=== PATIENT | male | born 1980 | race Caucasian/White ===

== ENCOUNTER 2023-12-26 16:15 | Outpatient (CLI) | payer BC, OTHER ==
[2023-12-26 20:42] LABS: BASOPHILS # (AUTO) 0.1 10^3/uL (0.0-0.1); BASOPHILS % (AUTO) 0.9 %; EOSINOPHILS # (AUTO) 0.6 10^3/uL (0.0-0.7); EOSINOPHILS % (AUTO) 7.5 %; HCT - HEMATOCRIT 45.7 % (42.0-52.0); HGB - HEMOGLOBIN 15.2 g/dL (14.0-18.0); LYMPHOCYTES # (AUTO) 2.2 10^3/uL (1.5-3.5); LYMPHOCYTES % (AUTO) 25.6 %; MEAN CORPUSCULAR HGB CONC 33.3 g/dL (32.0-36.0); MEAN CORPUSCULAR VOLUME 93.1 fL (80.0-94.0); MEAN PLATELET VOLUME 11.8 fL (7.4-11.4); MONOCYTES # (AUTO) 0.8 10^3/uL (0.0-1.0); MONOCYTES % (AUTO) 9.3 %; NEUTROPHILS # (AUTO) 4.8 10^3/uL (1.5-6.6); NEUTROPHILS % (AUTO) 56.3 %; PLT - PLATELET COUNT 255 10^3/uL (130-450); RED BLOOD COUNT 4.91 10^6/uL (4.70-6.10); RED CELL DISTRIBUTION WIDTH 12.6 % (12.0-15.0); WHITE BLOOD COUNT 8.6 x10^3/uL (4.8-10.8)
[2023-12-26 20:46] LABS: BILIRUBIN,URINE NEGATIVE (NEGATIVE); GLUCOSE, URINE (UA) NEGATIVE (NEGATIVE); KETONES,URINE (UA) NEGATIVE (NEGATIVE); LEUKOCYTE ESTERASE, URINE NEGATIVE (NEGATIVE); NITRITE,URINE NEGATIVE (NEGATIVE); OCCULT BLOOD,URINE LARGE (NEGATIVE); PH,URINE 6.5 PH (5.0-7.5); PROTEIN,URINE 100 mg/dL (NEGATIVE); UROBILINOGEN,URINE 1 (NORMAL) E.U./dL (NORMAL)
[2023-12-26 20:53] LABS: ALBUMIN 4.1 g/dL (3.2-5.5); ALBUMIN/GLOBULIN RATIO 1.5 (1.0-2.2); BILIRUBIN,TOTAL 0.4 mg/dL (0.2-1.0); CALCIUM 8.9 mg/dL (8.5-10.3); POTASSIUM 4.2 mmol/L (3.5-4.5); TOTAL PROTEIN 6.9 g/dL (6.4-8.9)
[2023-12-26 20:59] LABS: CLARITY,URINE CLEAR (CLEAR)
[2023-12-26 21:00] LABS: BACTERIA,URINE Rare /HPF (None Seen); RBC,URINE TNTC /HPF (0-5); SQUAMOUS EPITHELIAL CELL,UR NONE SEEN (<= Few); WBC,URINE 0-3 /HPF (0-3)
[2023-12-26 21:35] LABS: THYROID STIMULATING HORMONE 8.05 uIU/mL (0.34-5.60)
== END 2023-12-26 16:30 | disposition home or self-care (01) ==
LOC: LAB.N 16:15
PROVIDERS: ATTEND Physician Assistant Medical
DX: I10 Essential (primary) hypertension (principal)
CPT/HCPCS: 36415; 80053; 81001; 83690; 84443; 85025; 87086

== ENCOUNTER 2024-01-12 10:43 | Outpatient (CLI) | payer BC ==
[2024-01-12] MEDS ORDERED: iohexoL-300 100 ML VIAL ONE ×2 (10:57)
[2024-01-12] MEDS: iohexoL-300 100 ML VIAL IVP ONE (11:35)
--- NOTE | 2024-01-12 15:14 | CT Report ---
PROCEDURE: Abdomen/Pelvis W/WO INDICATIONS: HYPERTENSION CONTRAST: Omni 300 140ml TECHNIQUE: Noncontrast 5 mm thick sections acquired from the diaphragms to the symphysis. 5 mm coronal and sagi ttal reformats were then performed. After the administration of intravenous contrast, 5 mm thick sec tions acquired from the diaphragms to the symphysis. 5 mm thick coronal and sagittal reformats were acquired. For radiation dose reduction, the following was used: automated exposure control, adjustm ent of mA and/or kV according to patient size. COMPARISON: None. FINDINGS: Image quality: Excellent. Urinary system: Left kidney is normal in size. No left-sided hydronephrosis or nephrolithiasis on pre -contrast images. Left ureter is normal in course and caliber. There is an ill-defined, large partia lly exophytic mass in the lower right kidney measuring approximately 10.3 x 9.5 cm in axial cross sec tional dimension and approximately 10 cm in craniocaudal dimension. There is central low attenuation suggestive of central necrosis. There is mass effect upon the upper renal collecting system of the ri ght kidney without evidence for hydronephrosis. Right ureter is normal in course and caliber. The opa cified renal calyces and ureters appear normal, without filling defect. Bladder wall thickness is no rmal, accounting for underdistention. No calcified bladder stones. No filling defect within the opaci fied bladder. OTHER Lung bases and heart: 5 mm posterior right lower lobe nodule. Lung bases are otherwise clear. There i s mild hernia. Heart size is normal. Small hiatal hernia. Liver: No solid mass. Gallbladder and biliary tree: No radiopaque stones or wall thickening. No biliary dilation. Spleen: No splenomegaly. Pancreas: No pancreatic ductal dilation. Adrenals: No adrenal nodule. Bowel and peritoneum: No bowel distension. No pathologic free fluid. Normal appendix. Abdominal Lymph nodes: No central or retroperitoneal adenopathy. Vessels: Unremarkable. Reproductive organs: Unremarkable. Pelvic Lymph nodes: Unremarkable. Bones: No aggressive osseous abnormality. Other: Small fat-containing umbilical hernia without acute inflammation. IMPRESSION: 1. Large, ill-defined partially exophytic mass in the lower right kidney measuring 10.3 x 9.5 x 10.0 cm in size. There is suggestion of central necrosis. No suspicious intraluminal filling defects withi n the uterus or urinary bladder. Findings are highly suspicious for renal neoplasm. Recommend further evaluation with urology consultation. No evidence for adenopathy. Partially imaged lower lung demons trates a 5 mm posterior right lower lobe nodule. Consider further evaluation with CT of the chest to exclude other pulmonary nodules or adenopathy. 2. No evidence for urolithiasis or obstructive uropathy. 3. Small hiatal hernia. Reviewed by: Frank Yee MD on 01/12/2024 2:13 PM AKDT Approved by: Frank Yee MD on 01/12/2024 2:13 PM AKDT Station ID: [id number]
== END 2024-01-12 10:44 | disposition home or self-care (01) ==
LOC: LAB 10:43
PROVIDERS: ATTEND Physician Assistant Medical
DX: I10 Essential (primary) hypertension (principal); R31.9 Hematuria, unspecified; N28.89 Other specified disorders of kidney and ureter; R91.1 Solitary pulmonary nodule; K44.9 Diaphragmatic hernia without obstruction or gangrene
CPT/HCPCS: 36415; 74178; 82565; Q9967

== ENCOUNTER 2024-01-19 13:01 | Outpatient (CLI) | payer BC ==
[2024-01-19] MEDS ORDERED: iohexoL-300 100 ML VIAL ONE (13:24)
[2024-01-19] MEDS: iohexoL-300 100 ML VIAL IVP ONE (18:35)
--- NOTE | 2024-01-20 12:49 | CT Report ---
PROCEDURE: Chest W INDICATIONS: LUNG NODULE CONTRAST: Omni 300 100ml TECHNIQUE: After the administration of intravenous contrast, a CT scan of the chest was performed. Images were recorded and evaluated at appropriate window settings. Reformats: axial MIP of the chest, coronal and sagittal. For radiation dose reduction, the following was used: automated exposure control, adjustme nt of mA and/or kV according to patient size. COMPARISON: None. FINDINGS: Image quality: Diagnostic. Chest wall and lower neck: No thyroid nodule which requires sonographic follow up. No axillary or sup raclavicular adenopathy by size. Lungs and pleura: Small lung nodules are present. -There is a 3 nodule in the right upper lobe; series 4 image 35. -There is a 5 mm nodule in the right lower lobe; series series 4 image 57. No consolidation. No pleural effusions. No pneumothorax. Mediastinum: Heart size is normal. No pericardial effusion. No large vessel abnormality. No mediastin al adenopathy by size criteria. No hiatal hernia. Bones: No aggressive osseous abnormality. Upper Abdomen: Unremarkable. IMPRESSION: 1. Two small lung nodules, one in the right upper lobe and right and the right lower lobe. A short-te follow-up CT is recommended in 3 months. 2. No lymphadenopathy in abdomen or pelvis. Reviewed by: Bhavana Abrams MD on 01/20/2024 12:47 PM PDT Approved by: Bhavana Abrams MD on 01/20/2024 12:47 PM PDT Station ID: [id number]
== END 2024-01-19 13:02 | disposition home or self-care (01) ==
LOC: DI 13:01
PROVIDERS: ATTEND Registered Nurse
DX: R91.8 Other nonspecific abnormal finding of lung field (principal)
CPT/HCPCS: 71260; Q9967

== ENCOUNTER 2024-02-04 15:15 | Outpatient (CLI) | payer BC ==
[2024-02-04 15:43] LABS: ALBUMIN 4.1 g/dL (3.2-5.5); ALBUMIN/GLOBULIN RATIO 1.5 (1.0-2.2); BILIRUBIN,TOTAL 0.3 mg/dL (0.2-1.0); CALCIUM 9.4 mg/dL (8.5-10.3); TOTAL PROTEIN 6.9 g/dL (6.4-8.9)
== END 2024-02-04 15:16 | disposition home or self-care (01) ==
LOC: LAB 15:15
PROVIDERS: ATTEND Urology
DX: N28.89 Other specified disorders of kidney and ureter (principal)
CPT/HCPCS: 36415; 80053